=== PATIENT | male | born 1985 | race Caucasian/White ===

== ENCOUNTER 2023-02-28 21:06 | Emergency (ER) | payer MEDICAID ==
[~2023-02-28] VITALS: Ht 177.8 cm; Wt 182.8 kg
[~2023-02-28 21:06] MED LIST: APIX5TAB PO; ATOR40TA PO; LEVE1000 PO; LEVO750T75 PO
[2023-02-28 21:30] VITALS: BP 170/90; PULSE 85; RESP 17; TEMP 98; O2SAT 95
[2023-03-01] MEDS ORDERED: ACET-10509 PO (03:19)
[2023-03-01] MEDS ORDERED: SULF-59 PO (03:19)
[2023-03-01] MEDS ORDERED: IBUP-2213 PO (03:19)
[2023-03-01] MEDS ORDERED: SULFAMETH/TRIMETH DS 800/160MG 1 TAB PO ONE (03:25)
[2023-03-01] MEDS ORDERED: IBUPROFEN 600 MG TAB PO ONE (03:25)
[2023-03-01 03:50] VITALS: BP 152/95; PULSE 85; RESP 17; TEMP 98; O2SAT 95
== END 2023-03-01 03:50 | disposition home or self-care (01) ==
LOC: MED 21:06
DX: L03.116 Cellulitis of left lower limb (principal); J45.909 Unspecified asthma, uncomplicated; Z79.899 Other long term (current) drug therapy
CPT/HCPCS: 93971; 99284; Q0092

== ENCOUNTER 2023-03-14 13:52 | Emergency (ER) | payer MEDICAID ==
[~2023-03-14] VITALS: Ht 175.3 cm; Wt 200.1 kg
[~2023-03-14 13:52] MED LIST changes: +ACET-10509 PO; +IBUP-2213 PO; +SULF-59 PO
[2023-03-14 14:08] VITALS: BP 151/88; PULSE 89; RESP 20; TEMP 97.8; O2SAT 92
[2023-03-14 15:49] LABS: BASOPHILS # (AUTO) 0.1 K/uL (0.00-0.22); BASOPHILS % (AUTO) 0.8 % (0.0-2.0); EOSINOPHILS # (AUTO) 0.2 K/uL (0-0.4); EOSINOPHILS % (AUTO) 2.7 % (0.0-4.0); HEMATOCRIT 41.2 % (36-52); HEMOGLOBIN 13.4 g/dL (12.0-18.0); LYMPHOCYTES # (AUTO) 2.3 K/uL (2.0-11.5); LYMPHOCYTES % (AUTO) 26.8 % (20.5-51.1); MEAN CORPUSCULAR HEMOGLOBIN 28 pg (27-31); MEAN CORPUSCULAR HGB CONC 33 g/dL (33-37); MEAN CORPUSCULAR VOLUME 85.9 fL (80-94); MONOCYTES # (AUTO) 0.5 K/uL (0.8-1.0); MONOCYTES % (AUTO) 6.5 % (1.7-9.3); NEUTROPHILS # (AUTO) 5.3 K/uL (1.8-7.7); NEUTROPHILS % (AUTO) 63.2 % (42.2-75.2); PLATELET COUNT (AUTO) 215 K/uL (140-450); RED BLOOD CELL COUNT(AUTO) 4.79 MIL/uL (4.20-6.10); RED CELL DISTRIBUTION WIDTH 16.8 % (11.6-13.7); WHITE BLOOD COUNT (AUTO) 8.4 K/uL (4.8-10.8)
[2023-03-14 16:03] LABS: ALBUMIN 3.4 g/dL (3.4-5.0); ANION GAP 10.7 (8-16); CALCIUM 8.4 mg/dL (8.5-10.1); CARBON DIOXIDE 28.5 mmol/L (21-32); CREATININE 0.9 mg/dL (0.6-1.3); POTASSIUM 4.2 mmol/L (3.5-5.1); TOTAL BILIRUBIN 0.4 mg/dL (0.0-1.0)
[2023-03-14 19:06] VITALS: BP 145/88; PULSE 88; RESP 17; TEMP 97.8; O2SAT 93
== END 2023-03-14 19:06 | disposition home or self-care (01) ==
LOC: MED 13:52
DX: I87.2 Venous insufficiency (chronic) (peripheral) (principal); R60.0 Localized edema; J45.909 Unspecified asthma, uncomplicated; Z86.718 Personal history of other venous thrombosis and embolism; Z79.899 Other long term (current) drug therapy; Z79.1 Long term (current) use of non-steroidal anti-inflammatories (NSAID); Z79.2 Long term (current) use of antibiotics; Z79.01 Long term (current) use of anticoagulants
CPT/HCPCS: 36415; 73590; 80053; 85025; 93971; 99284; Q0092